=== PATIENT | male | born 1965 | race Caucasian/White ===

== ENCOUNTER → 2019-08-21 | Outpatient (CLI) | payer BC ==
--- NOTE | 2019-08-21 08:47 | US ---
EXAMINATION TYPE: US abdomen complete DATE OF EXAM: 08/21/2019 COMPARISON: 08/25/2016 CLINICAL HISTORY: 54-year-old male R74.8 Elevated Liver Enzymes. TECHNIQUE: Multiple sonographic images of the abdomen are obtained. FINDINGS: EXAM MEASUREMENTS: Liver Length: 12.9 cm Gallbladder Wall: not thickened CBD: 0.5 cm Spleen: 11.2 cm Right Kidney: 11.7 x 5.9 x 5.4 cm Left Kidney: 11.6 x 5.3 x 5.2 cm Opticianry Teacher notes: Technically difficult study due to extensive midline bowel gas. Pancreas: not visualized due to midline bowel gas Liver: Mildly increased echogenicity. No focal lesion. Gallbladder: echogenic focus on wall measures 0.3 cm, probable polyp. Evidence for sonographic Rodriguez's sign: No CBD: wnl Spleen: wnl Right Kidney: No hydronephrosis. Left Kidney: No hydronephrosis. Upper IVC: wnl Abd Aorta: wnl IMPRESSION: 1. A 3 mm mural-based echogenic focus along the anterior gallbladder wall, suspected small polyp, sta ble from 2016 suggesting a benign etiology. 2. Increased echogenicity of the liver suggesting underlying fatty infiltration. Correlate with LFTs, liver profile, and patient risk factors.
== END | disposition home or self-care (01) ==
LOC: RADUSWWP 07:22
PROVIDERS: ATTEND Family Medicine
DX: R74.8 Abnormal levels of other serum enzymes (principal)
CPT/HCPCS: 76700

== ENCOUNTER → 2019-08-22 | Outpatient (CLI) | payer BC ==
--- NOTE | 2019-08-22 11:45 | ECHOS ---
STRESS ECHOCARDIOGRAM INDICATIONS: Dyspnea MEDICATIONS: Losartan BASELINE HEART RATE: 54 BASELINE BLOOD PRESSURE: 101/55 MAXIMUM HEART RATE: 153 MAXIMUM BLOOD PRESSURE: 186/47 85% MPHR: 139 100% MPHR: 164 METS: 11.9 MAXIMUM STAGE REACHED: 4 TOTAL EXERCISE TIME: 10:15 CLINICAL INFORMATION: Baseline EKG revealed normal sinus rhythm without significant ST changes. Patient walked for 10 minutes 15 seconds on standard [facility] protocol. Achieved a maximal heart rate of 153 beats per minute, developed fatigue and shortness of breath but did not have any angina or arrhythmia. EKG did not reveal any ST-segment changes to indicate ischemia. By EKG criteria, this is a negative stress test with excellent exercise capacity. Baseline echo images revealed normal wall motion and wall thickening of all segments. At peak exercise, there was good augmentation of different wall motion and wall thickening of all segments suggesting that there is no evidence of stress-induced ischemia on this study. IMPRESSION: 1. Excellent exercise capacity with a negative stress test by EKG criteria. 2. Normal stress echocardiogram. MMODL / IJN: [id number] /
== END | disposition home or self-care (01) ==
LOC: RADNMMAIN 09:41
PROVIDERS: ATTEND Family Medicine
DX: R06.00 Dyspnea, unspecified (principal)
CPT/HCPCS: 93351

== ENCOUNTER → 2024-11-10 | Outpatient (CLI) | payer BC ==
--- NOTE | 2024-11-10 09:42 | CT ---
EXAMINATION TYPE: CT heart w calcium score DATE OF EXAM: 11/10/2024 COMPARISON: CLINICAL INDICATION: Male, 59 years old with history of E78.5 HYPERLIPIDEMIA, UNSPECIFIED; PHH, Hyper lipidemia, no family hx TECHNIQUE: Prospective Gating was used. Slice thickness: 3mm. Density threshold (HU): 130, Pixel threshold: 3, Algorithm: discrete. CT DLP: 91.[address] CTDI: mGy Automated exposure control for dose reduction was used. FINDINGS: CT CALCIUM SCORING Coronary calcium is a marker for plaque (fatty deposits) in a blood vessel or atherosclerosis (harden ing of the arteries). The presence and amount of calcium detected in a coronary artery by the CT sca n, indicates the presence and amount of atherosclerotic plaque. These calcium deposits appear years before the development of heart disease symptoms such as chest pain and shortness of breath. A calcium score is computed for each of the coronary arteries based upon the volume and density of th e calcium deposits. This can be referred to as your calcified plaque burden. It does not correspond directly to the percentage of narrowing in the artery but does correlate with the severity of the un derlying coronary atherosclerosis. RESULTS Region: LM Calcium Score ([place]): 0 Volume (mm3): 0 Mass (g): 0 Region: RCA Calcium Score ([place]): 0 Volume (mm3): 0 Mass (g): 0 Region: LAD Calcium Score ([place]): 14.67 Volume (mm3): 18.98 Mass (g): 3.66 Region: CX Calcium Score ([place]): 0 Volume (mm3): 0 Mass (g): 0 Region: PDA Calcium Score ([place]): 0 Volume (mm3): 0 Mass (g): 0 Total: Calcium Score ([place]): 14.67 Volume (mm3): 18.98 Mass (g): 6.33 TOTAL CALCIUM SCORE: 14.67 Incidental note is made of a small hiatal hernia. IMPRESSION: Calcium Score: 14.67 Implication: Definite, at least mild atherosclerotic plaque Risk of Coronary Artery Disease: Mild or minimal coronary narrowings likely. CALCIUM SCORE IMPLICATION RISK OF C ORONARY ARTERY DISEASE 0 No identifiable plaque Very low, generally less than 5% 1-10 Minimal identifiable plaque Very unlikely, less than 10% 11-100 Definite, at least mild atherosclerotic plaque Mild or m inimal coronary narrowings likely 101-400 Definite, at least moderate atherosclerotic plaque Mild coronary ar nitza disease highly likely, significant narrowing possible 401 or Higher Extensive atherosclerotic plaque High lik elihood of at least one significant coronary narrowing [facility], , 11/10/2024 9:40 AM
== END | disposition home or self-care (01) ==
LOC: RADCTMAIN 08:14
PROVIDERS: ATTEND Family Medicine
DX: E78.5 Hyperlipidemia, unspecified (principal); I25.10 Atherosclerotic heart disease of native coronary artery without angina pectoris
CPT/HCPCS: 75571